=== PATIENT | male | born 1985 | race Two or more races ===

== ENCOUNTER 2023-12-08 19:31 | Emergency (ER) | payer OTHER ==
[~2023-12-08] VITALS: Ht 165.1 cm; Wt 84.0 kg
[2023-12-08 20:02] VITALS: BP 154/100; PULSE 79; RESP 16; TEMP 98.3; O2SAT 98
[2023-12-08] MEDS: DexAMETHasone SOD PHOS 10MG/1ML VIAL INJ IV ONE (21:04)
[2023-12-08] MEDS: KETOROLAC TROMETH 60MG/2ML VIAL IM ONE (21:05)
[2023-12-08] MEDS ORDERED: COLC1CAP PO (21:14)
[2023-12-08] MEDS ORDERED: ALLO100T PO (21:14)
== END 2023-12-08 21:54 | disposition home or self-care (01) ==
LOC: ER 19:31
DX: M10.9 Gout, unspecified (principal)
CPT/HCPCS: 73630; 96372; 96374; 99284; J1100; J1885

== ENCOUNTER 2024-10-10 07:26 | Emergency (ER) | payer OTHER ==
[~2024-10-10] VITALS: Ht 165.1 cm; Wt 88.4 kg
[~2024-10-10 07:26] MED LIST: ALLO100T PO; COLC1CAP PO
--- NOTE | 2024-10-10 07:53 | ED.PDOC ---
History of Present Illness HPI Comments 39-year-old male came to the ER stating that he has been having left foot pain for the past week. Pain is 9/10. He has been taking Motrin with mild relief. He does have a history of gout. Denies any history of hypertension diabetes. His blood pressure on arrival was 145/97. Denies any other symptoms. Chief Complaint: Lower Extremity Time Seen by MD: 07:43 Reviewed Notes: Nurses Notes, Medications, Allergies Allergies: Coded Allergies: NO KNOWN ALLERGIES (Unverified , 12/08/23) Home Meds Active Scripts Allopurinol (Allopurinol) 100 Mg Tab, 1 CAP PO DAILY for 7 Days, #7 TAB Prov:NAHUM BURCH 12/08/23 Colchicine (Colchicine) 0.6 Mg Cap, 2 CAP PO ONCE for 1 Day, #6 CAP Take 2 capsules now, then 1 capsule 1 hour later. May repeat in 3 days x1 Prov:NAHUM BURCH 12/08/23 Information Source: Patient Mode of Arrival: Ambulatory Severity: Moderate Timing: Days Duration: Since onset Past Medical History PAST MEDICAL HISTORY: Gout Surgical History: Denies all surgeries Family History Family History: Reviewed,noncontributory to illness, No family hx of Cancer, No family hx of DM, No family hx of Heart popeye, No family hx of HTN, No family hx ofKidney popeye, No family hx of Liver popeye, No family hx of Lung popeye, No family hx of Stroke Social History Smoker: Non-Smoker Alcohol: Denies ETOH Use Drugs: Denies Drug Use Constitutional: denies: chills, diaphoresis, fatigue, fever, malaise, sweats, weakness, others EENTM: denies: blurred vision, double vision, ear bleeding, ear discharge, ear drainage, ear pain, ear ringing, eye pain, eye redness, hearing loss, mouth pain, mouth swelling, nasal discharge, nose bleeding, nose congestion, nose pain, photophobia, tearing, throat pain, throat swelling, voice changes, others Respiratory: denies: cough, hemoptysis, orthopnea, SOB at rest, shortness of breath, SOB with excertion, stridor, wheezing, others Cardiovascular: denies: chest pain, dizzy spells, diaphoresis, Dyspnea on exertion, edema, irregular heart beat, left arm pain, lightheadedness, palpitations, PND, syncope, others Gastrointestinal: denies: abdomen distended, abdominal pain, blood streaked bowels, constipated, diarrhea, dysphagia, difficulty swallowing, hematemesis, melena, nausea, poor appetite, poor fluid intake, rectal bleeding, rectal pain, vomiting, others Genitourinary: denies: burning, dysuria, flank pain, frequency, hematuria, incontinence, penile discharge, penile sore, pain, testicle pain, testicle swelling, urgency, others Neurological: denies: dizziness, fainting, headache, left sided numbness, left sided weakness, numbness, paresthesia, pre-existing deficit, right sided numbness, right sided weakness, seizure, speech problems, tingling, tremors, weakness, others Musculoskeletal: reports: gout; denies: back pain, joint pain, joint swelling, muscle pain, muscle stiffness, neck pain, others Integumetry: denies: bruises, change in color, change in hair/nails, dryness, laceration, lesions, lumps, rash, wounds, others Allergic/Immunocompromised: denies: Difficulty Healing, Frequent Infections, Hives, Itching, others Hematologic/Lymphatic: denies: anemia, blood clots, easy bleeding, easy bruising, swollen glands, others Endocrine: denies: excessive hunger, excessive sweating, excessive thirst, excessive urination, flushing, intolerance to cold, intolerance to heat, unexplained weight gain, unexplained weight loss, others Psychiatric: denies: anxiety, bipolar disorder, depression, hopeless, panic disorder, schizophrenia, sleepless, suicidal, others Physical Exam General Appearance: Moderate Distress HEENT: Normal ENT Inspection, Pharynx Normal, TMs Normal Neck: Full Range of Motion, Non-Tender, Normal, Normal Inspection Respiratory: Chest Non-Tender, Lungs Clear, No Accessory Muscle Use, No Respiratory Distress, Normal Breath Sounds Cardiovascular: No Edema, No JVD, No Murmur, No Gallop, Normal Peripheral Pulses, Regular Rate/Rhythm Breast Exam: Deferred Gastrointestinal: No Organomegaly, Non Tender, No Pulsatile Mass, Normal Bowel Sounds, Soft Genitalia: Deferred Pelvic: Deferred Rectal: Deferred Extremities: No calf tenderness, Normal capillary refill, Normal inspection, Normal range of motion, Non-tender, No pedal edema Musculoskeletal : Apperance: Normal Neurologic: Alert, government affairs director II-XII nml as Tested, No Motor Deficits, Normal Affect, Normal Mood, No Sensory Deficits Cerebellar Function: Normal Reflexes: Normal Skin: Dry, Normal Color, Warm Peripheral Pulses: 3+ Radial (R), 3+ Radial (L) Lymphatic: No Adenopathy Was a procedure done? Was a procedure done?: No Differential Dx Considerations may include: Gout X-Ray, Labs, Meds, VS Vital Signs Date Time Temp Pulse Resp B/P (MAP) Pulse Ox O2 Delivery O2 Flow Rate FiO2 10/10/24 10:20 58 16 145/94 (111) 99 10/10/24 08:29 98.0 68 18 135/92 (106) 95 98.0 10/10/24 08:29 68 18 95 Room Air 10/10/24 07:49 98.0 75 18 145/97 (113) 98 98.0 Current Medications Medications (Trade) Dose Ordered Sig/Jazmin Route Start Time Stop Time Status Last Admin Ketorolac Tromethamine (Toradol Injection) 60 mg ONCE ONCE IM 10/10/24 08:00 10/10/24 08:01 DC 10/10/24 08:29 Patient alert pain Complaining of left foot pain. Vitals stable. Answering all questions. On examination there is mild swelling of the left toes. No serious gouty attack. Was given Toradol. Was given prescription of indomethacin. Counseled patient on eating habits. Explained to the patient. Was told to follow up with his primary care physician. Was told to come back if there is any problem. Time of 1ST Reevaluation: 11:06 Reevaluation 1ST: Unchanged Patient Education/Counseling: Diagnosis, Treatment, Prognosis, Need For Follow Up Family Education/Counseling: No Family Present SEPSIS Sepsis Screen Vital Signs Date Time Temp Pulse Resp B/P (MAP) Pulse Ox O2 Delivery O2 Flow Rate FiO2 10/10/24 10:20 58 16 145/94 (111) 99 10/10/24 08:29 98.0 68 18 135/92 (106) 95 98.0 10/10/24 08:29 68 18 95 Room Air 10/10/24 07:49 98.0 75 18 145/97 (113) 98 98.0 Medications Medications Dose Ordered Sig/Jazmin Route Start Time Stop Time Status Last Admin Dose Admin Ketorolac Tromethamine 60 mg ONCE ONCE IM 10/10/24 08:00 10/10/24 08:01 DC 10/10/24 08:29 Departure 1 Departure Time of Disposition: 11:07 Impression: Primary Impression: Gout attack Qualified Codes: M10.9 - Gout, unspecified Disposition: 01 HOME / SELF CARE / HOMELESS Condition: Good e-Prescriptions Indomethacin (Indomethacin) 50 Mg Cap 1 CAP PO TID for 3 Days, #9 CAP 1 Refill Prov: REJI WARNER MD 10/10/24 Discharged With: Self Critical Care Note Critical Care Time?: No Stability Stability form required: No Heart Score Heart Score: Heart Score Response (Comments) Value History N/A 0 EKG N/A 0 Age N/A 0 Risk Factors N/A 0 Troponin N/A 0 Total 0 REJI WARNER MD Oct 10, 2024 07:53
--- NOTE | 2024-10-10 07:53 | ED.PDOC ---
Musculoskeletal HPI Comments Patient came in complaining of left foot pain for the past week progressively getting worse. History of gout. States that he has been taking Motrin with some relief. Denies any other symptoms. Chief Complaint: Lower Extremity Time Seen by MD: 07:55 Reviewed Notes: Nurses Notes, Medications, Allergies Allergies: Coded Allergies: NO KNOWN ALLERGIES (Unverified , 12/08/23) Home Meds Active Scripts Indomethacin (Indomethacin) 50 Mg Cap, 1 CAP PO TID for 3 Days, #9 CAP 1 Refill Prov:REJI WARNER MD 10/10/24 Allopurinol (Allopurinol) 100 Mg Tab, 1 CAP PO DAILY for 7 Days, #7 TAB Prov:NAHUM BURCH 12/08/23 Colchicine (Colchicine) 0.6 Mg Cap, 2 CAP PO ONCE for 1 Day, #6 CAP Take 2 capsules now, then 1 capsule 1 hour later. May repeat in 3 days x1 Prov:NAHUM BURCH 12/08/23 Information Source: Patient Mode of Arrival: Ambulatory Location: Left Extremity Location: Foot Timing: Days Severity: Moderate Circumstances: Gout Onset of Symptoms: Spontaneous History of: Gout Past Medical History PAST MEDICAL HISTORY: Denies Surgical History: Denies all surgeries Family History Family History: Reviewed,noncontributory to illness, No family hx of Cancer, No family hx of DM, No family hx of Heart popeye, No family hx of HTN, No family hx ofKidney popeye, No family hx of Liver popeye, No family hx of Lung popeye, No family hx of Stroke Social History Smoker: Non-Smoker Alcohol: Denies ETOH Use Drugs: Denies Drug Use Constitutional: denies: chills, diaphoresis, fatigue, fever, malaise, sweats, weakness, others EENTM: denies: blurred vision, double vision, ear bleeding, ear discharge, ear drainage, ear pain, ear ringing, eye pain, eye redness, hearing loss, mouth larissa n, mouth swelling, nasal discharge, nose bleeding, nose congestion, nose pain, photophobia, tearing, throat pain, throat swelling, voice changes, others Respiratory: denies: cough, hemoptysis, orthopnea, SOB at rest, shortness of breath, SOB with excertion, stridor, wheezing, others Cardiovascular: denies: chest pain, dizzy spells, diaphoresis, Dyspnea on exertion, edema, irregular heart beat, left arm pain, lightheadedness, palpitations, PND, syncope, others Gastrointestinal: denies: abdomen distended, abdominal pain, blood streaked bowels, constipated, diarrhea, dysphagia, difficulty swallowing, hematemesis, melena, nausea, poor appetite, poor fluid intake, rectal bleeding, rectal pain, vomiting, others Genitourinary: denies: burning, dysuria, flank pain, frequency, hematuria, incontinence, penile discharge, penile sore, pain, testicle pain, testicle swelling, urgency, others Neurological: denies: dizziness, fainting, headache, left sided numbness, left sided weakness, numbness, paresthesia, pre-existing deficit, right sided numbness, right sided weakness, seizure, speech problems, tingling, tremors, weakness, others Musculoskeletal: reports: gout; denies: back pain, joint pain, joint swelling, muscle pain, muscle stiffness, neck pain, others Integumetry: denies: bruises, change in color, change in hair/nails, dryness, laceration, lesions, lumps, rash, wounds, others Allergic/Immunocompromised: denies: Difficulty Healing, Frequent Infections, Hives, Itching, others Hematologic/Lymphatic: denies: anemia, blood clots, easy bleeding, easy bruising, swollen glands, others Endocrine: denies: excessive hunger, excessive sweating, excessive thirst, excessive urination, flushing, intolerance to cold, intolerance to heat, unexplained weight gain, unexplained weight loss, others Psychiatric: denies: anxiety, bipolar disorder, depression, hopeless, panic disorder, schizophrenia, sleepless, suicidal, others Physical Exam General Appearance: Moderate Distress HEENT: Normal ENT Inspection, Pharynx Normal, TMs Normal Neck: Full Range of Motion, Non-Tender, Normal, Normal Inspection Respiratory: Chest Non-Tender, Lungs Clear, No Accessory Muscle Use, No Respiratory Distress, Normal Breath Sounds Cardiovascular: No Edema, No JVD, No Murmur, No Gallop, Normal Peripheral Pulses, Regular Rate/Rhythm Breast Exam: Deferred Gastrointestinal: No Organomegaly, Non Tender, No Pulsatile Mass, Normal Bowel Sounds, Soft Genitalia: Deferred Pelvic: Deferred Rectal: Deferred Extremities: No calf tenderness, Normal capillary refill, Normal inspection, Normal range of motion, Non-tender, No pedal edema, Swelling (Left foot mild) Musculoskeletal : Apperance: Normal Neurologic: Alert, airport tower controller II-XII nml as Tested, No Motor Deficits, Normal Affect, Normal Mood, No Sensory Deficits Cerebellar Function: Normal Reflexes: Normal Skin: Dry, Normal Color, Warm Peripheral Pulses: 3+ Radial (R), 3+ Radial (L) Lymphatic: No Adenopathy Was a procedure done? Was a procedure done?: No Differential Diagnosis EXT Differential Diagnosis: Sprain, Strain X-Ray, Labs, Meds, VS Vital Signs Date Time Temp Pulse Resp B/P (MAP) Pulse Ox O2 Delivery O2 Flow Rate FiO2 10/10/24 11:29 88 17 97 Room Air 10/10/24 11:29 97.8 88 18 150/98 (115) 97 97.8 10/10/24 10:20 58 16 145/94 (111) 99 10/10/24 08:29 98.0 68 18 135/92 (106) 95 98.0 10/10/24 08:29 68 18 95 Room Air 10/10/24 07:49 98.0 75 18 145/97 (113) 98 98.0 Current Medications Medications (Trade) Dose Ordered Sig/Jazmin Route Start Time Stop Time Status Last Admin Ketorolac Tromethamine (Toradol Injection) 60 mg ONCE ONCE IM 10/10/24 08:00 10/10/24 08:01 DC 10/10/24 08:29 Patient alert. History of gout. Complaining of left foot pain. Vitals stable. Answering questions. Blood pressure slightly elevated. Was given pain medication. Was given prescription of indomethacin. Explained to the patient. Was told to follow up with his primary care physician. Was told to come back if there is any problem. Time of 1ST Reevaluation: 08:25 Reevaluation 1ST: Unchanged Patient Education/Counseling: Diagnosis, Treatment, Prognosis, Need For Follow Up Family Education/Counseling: No Family Present Departure 1 Departure Time of Disposition: 17:27 Impression: Primary Impression: Gout attack Qualified Codes: M10.9 - Gout, unspecified Disposition: HOME / SELF CARE / HOMELESS Condition: Good e-Prescriptions Indomethacin (Indomethacin) 50 Mg Cap 1 CAP PO TID for 3 Days, #9 CAP 1 Refill Prov: REJI WARNER MD 6/26/25 Discharged With: Self Critical Care Note Critical Care Time?: No Stability Stability form required: No Heart Score Heart Score: Heart Score Response (Comments) Value History N/A 0 EKG N/A 0 Age N/A 0 Risk Factors N/A 0 Troponin N/A 0 Total 0 I personally scribed for REJI WARNER MD ([email or web address]) on 10/10/24 at 07:53. Electronically submitted by Lizbeth Carter ([email or web address]). REJI WARNER MD Oct 10, 2024 07:53
[2024-10-10] MEDS: KETOROLAC TROMETH 60MG/2ML VIAL IM ONE (08:29)
[2024-10-10] MEDS ORDERED: INDO50CA82 PO (11:08)
[2024-10-10 11:29] VITALS: BP 150/98; PULSE 88; RESP 17; TEMP 97.8; O2SAT 97
== END 2024-10-10 11:33 | disposition home or self-care (01) ==
LOC: ER 07:26
DX: M10.9 Gout, unspecified (principal); M79.672 Pain in left foot
CPT/HCPCS: 96372; 99283; J1885

== ENCOUNTER 2024-11-07 03:44 | Emergency (ER) | payer OTHER ==
[~2024-11-07] VITALS: Ht 165.1 cm; Wt 86.6 kg
[~2024-11-07 03:44] MED LIST changes: +INDO50CA82 PO
[2024-11-07] MEDS ORDERED: IBUP-1456 PO (04:16)
[2024-11-07] MEDS ORDERED: METH4PAK PO (04:16)
--- NOTE | 2024-11-07 04:19 | ED.PDOC ---
Musculoskeletal HPI Comments 39 year old male presents to ER with complaints of left foot pain x 1 day. Patient states he felt a cracking sensation with associated pain/swelling to left lateral foot 5 hours after he finished playing soccer yesterday evening. He rates his current pain a 9/10 to left foot without radiation. Denies use of medications for current symptoms and denies numbness/tingling, left ankle pain, falls or any further symptoms/complaints Chief Complaint: Lower Extremity Time Seen by MD: 03:47 Primary Care Provider: UNKNOWN Reviewed Notes: Nurses Notes, Medications, Allergies Allergies: Coded Allergies: NO KNOWN ALLERGIES (Unverified , 12/08/23) Home Meds Active Scripts Methylprednisolone (Medrol Dosepak) 4 Mg Jefferson, 4 MG PO UD, #21 TAB 0 Refills UAD Prov:RAMON VELEZ 11/07/24 Ibuprofen (Ibuprofen) 800 Mg Tab, 1 TAB PO TID PRN, #30 TAB 0 Refills Prov:RAMON VELEZ 11/07/24 Indomethacin (Indomethacin) 50 Mg Cap, 1 CAP PO TID for 3 Days, #9 CAP 1 Refill Prov:REJI WARNER MD 10/10/24 Allopurinol (Allopurinol) 100 Mg Tab, 1 CAP PO DAILY for 7 Days, #7 TAB Prov:NAHUM BURCH 12/08/23 Colchicine (Colchicine) 0.6 Mg Cap, 2 CAP PO ONCE for 1 Day, #6 CAP Take 2 capsules now, then 1 capsule 1 hour later. May repeat in 3 days x1 Prov:NAHUM BURCH 12/08/23 Information Source: Patient Mode of Arrival: Ambulatory Past Medical History PAST MEDICAL HISTORY: Gout Surgical History: Denies all surgeries Family History Family History: Unknown Social History Smoker: Non-Smoker Alcohol: Denies ETOH Use Drugs: Denies Drug Use Lives In: Home Constitutional: denies: chills, diaphoresis, fatigue, fever, malaise, sweats, weakness, others EENTM: denies: blurred vision, double vision, ear bleeding, ear discharge, ear drainage, ear pain, ear ringing, eye pain, eye redness, hearing loss, mouth pain, mouth swelling, nasal discharge, nose bleeding, nose congestion, nose pain, photophobia, tearing, throat pain, throat swelling, voice changes, others Respiratory: denies: cough, hemoptysis, orthopnea, SOB at rest, shortness of breath, SOB with excertion, stridor, wheezing, others Cardiovascular: denies: chest pain, dizzy spells, diaphoresis, Dyspnea on exertion, edema, irregular heart beat, left arm pain, lightheadedness, palpitations, PND, syncope, others Gastrointestinal: denies: abdomen distended, abdominal pain, blood streaked bowels, constipated, diarrhea, dysphagia, difficulty swallowing, hematemesis, melena, nausea, poor appetite, poor fluid intake, rectal bleeding, rectal pain, vomiting, others Genitourinary: denies: burning, dysuria, flank pain, frequency, hematuria, incontinence, penile discharge, penile sore, pain, testicle pain, testicle swelling, urgency, others Neurological: denies: dizziness, fainting, headache, left sided numbness, left sided weakness, numbness, paresthesia, pre-existing deficit, right sided numbness, right sided weakness, seizure, speech problems, tingling, tremors, weakness, others Musculoskeletal: reports: others (As stated in HPI) Integumetry: reports: others (As stated in HPI) Allergic/Immunocompromised: denies: Difficulty Healing, Frequent Infections, Hives, Itching, others Hematologic/Lymphatic: denies: anemia, blood clots, easy bleeding, easy bruising, swollen glands, others Endocrine: denies: excessive hunger, excessive sweating, excessive thirst, excessive urination, flushing, intolerance to cold, intolerance to heat, unexplained weight gain, unexplained weight loss, others Psychiatric: denies: anxiety, bipolar disorder, depression, hopeless, panic disorder, schizophrenia, sleepless, suicidal, others Physical Exam General Appearance: No Apparent Distress HEENT: PERRL/EOMI Neck: Full Range of Motion, Non-Tender, Normal Respiratory: Chest Non-Tender, Lungs Clear, No Accessory Muscle Use, No Respiratory Distress, Normal Breath Sounds Cardiovascular: No Murmur, No Gallop, Regular Rate/Rhythm Breast Exam: Deferred Gastrointestinal: NOT DONE Genitalia: Deferred Pelvic: Deferred Rectal: Deferred Extremities: Normal capillary refill, Normal range of motion Musculoskeletal : Extremity Location: Foot (TTP/mild swelling noted to left lateral foot. No further skin changes noted. Pulses intact. Steady gait appreciated) Neurologic: Alert, No Motor Deficits, Normal Affect, Normal Mood, No Sensory Deficits Cerebellar Function: Normal Reflexes: Normal Skin: Dry, Normal Color, Warm Lymphatic: No Adenopathy Was a procedure done? Was a procedure done?: No Sedation Sedation?: No Differential Diagnosis EXT Differential Diagnosis: Fracture, Dislocation, Neurovascular injury X-Ray, Labs, Meds, VS Vital Signs Date Time Temp Pulse Resp B/P (MAP) Pulse Ox O2 Delivery O2 Flow Rate FiO2 11/07/24 04:10 98.3 70 18 148/101 (117) 99 98.3 PATIENT: JOEY GLASER AACCT: [id number]: [id number] : 1985 LOC: ER ROOM / BED: / AGE / SEX: 39 / M ADM STATUS: REG ER SERVICE 8 ORDERING PHYSICIAN: RAMON VELEZ PROCEDURE(s): LFOOT - L FOOT 3 VIEW XRAY REASON: left foot pain ORDER NUMBER(s): [id number], ACCESSION NUMBER(s): [id number] CLINICAL INDICATION: left foot pain TECHNIQUE: XY L FOOT 3 VIEW XRAY Comparison: XY L FOOT 3 VIEW XRAY on DOS: 12/08/23 FINDINGS/IMPRESSION: : There is no evidence of acute fracture or dislocation. Soft tissues are unremarkable. ATED BY: ALFIE LEE MD DICTATED DATE/TIME: 11/07/24432 SIGNED BY: ALFIE LEE MD SIGNED DATE/TIME: 11/07/24432 CC: Toradol 60 mg IM ordered Left foot x-ray reviewed Advised on elevation and alternate ice on/off as needed for pain/swelling Advised to follow up with PCP in 1-2 days Patient verbalized understanding and agreeable with current plan of care Advised to return to ER immediately if symptoms worsen Images Reviewed?: Images reviewed and evaluated by me Time of 1ST Reevaluation: 04:12 Reevaluation 1ST: N/A Patient Education/Counseling: Diagnosis, Treatment, Prognosis, Need For Follow Up Family Education/Counseling: No Family Present Departure 1 Departure Time of Disposition: 05:22 Impression: Primary Impression: Sprain of left foot Qualified Codes: S93.602A - Unspecified sprain of left foot, initial encounter Disposition: HOME / SELF CARE / HOMELESS Condition: Stable e-Prescriptions Methylprednisolone (Medrol Dosepak) 4 Mg Jefferson 4 MG PO UD, #21 TAB 0 Refills UAD Prov: RAMON VELEZ 11/07/24 Ibuprofen (Ibuprofen) 800 Mg Tab 1 TAB PO TID PRN, #30 TAB 0 Refills Prov: RAMON VELEZ 11/07/24 Discharged With: Friend Critical Care Note Critical Care Time?: No Stability Stability form required: No Heart Score Heart Score: Heart Score Response (Comments) Value History N/A 0 EKG N/A 0 Age N/A 0 Risk Factors N/A 0 Troponin N/A 0 Total 0 RAMON VELEZ Nov 07, 2024 04:19
--- NOTE | 2024-11-07 04:35 | DVH ---
CLINICAL INDICATION: left foot pain TECHNIQUE: XY L FOOT 3 VIEW XRAY Comparison: XY L FOOT 3 VIEW XRAY on DOS: 12/08/23 FINDINGS/IMPRESSION: : There is no evidence of acute fracture or dislocation. Soft tissues are unremarkable.
[2024-11-07] MEDS: KETOROLAC TROMETH 60MG/2ML VIAL IM ONE (06:20)
[2024-11-07] MEDS ORDERED: ALL100T PO (06:40)
[2024-11-07 06:47] VITALS: BP 148/101; PULSE 70; RESP 18; TEMP 98.4; O2SAT 99
== END 2024-11-07 06:53 | disposition home or self-care (01) ==
LOC: ER 03:44
DX: S93.692A Other sprain of left foot, initial encounter (principal); M10.9 Gout, unspecified; Z79.899 Other long term (current) drug therapy; X58.XXXA Exposure to other specified factors, initial encounter; Y93.66 Activity, soccer; Y92.89 Other specified places as the place of occurrence of the external cause; Y99.8 Other external cause status
CPT/HCPCS: 73630; 96372; 99283; J1885

== ENCOUNTER 2025-03-25 17:43 | Emergency (ER) | payer OTHER ==
[~2025-03-25] VITALS: Ht 160 cm; Wt 86.5 kg
[~2025-03-25 17:43] MED LIST changes: +ALL100T PO; +IBUP-1456 PO; +METH4PAK PO
[2025-03-25 19:41] VITALS: BP 143/74; PULSE 75; RESP 20; TEMP 97.7; O2SAT 99
[2025-03-25] MEDS ORDERED: INDO50CA82 PO (19:44)
[2025-03-25] MEDS ORDERED: PRED20TA2 PO (19:44)
--- NOTE | 2025-03-25 19:44 | ED.PDOC ---
Musculoskeletal HPI Comments 39 year old male presents to ER with complaints of right great toe pain x 3 days. Patient with PMH of gout reports he's been experiencing unprovoked right great toe pain x3 days. Reports that he has had similar symptoms in the past related to a "gout attack". Notes that he did take indomethacin along with allopurinol yesterday with slight relief. He rates his current pain an 8/10 to right great toe without radiation and presents to ER ambulatory on arrival, with steady gait, in no distress. Denies fever, injury, numbness/tingling or any further symptoms/complaints Chief Complaint: Lower Extremity Time Seen by MD: 18:16 Primary Care Provider: UNKNOWN Reviewed Notes: Nurses Notes, Medications, Allergies Allergies: Coded Allergies: NO KNOWN ALLERGIES (Unverified , 12/08/23) Home Meds Active Scripts Indomethacin (Indomethacin) 50 Mg Cap, 1 CAP PO TID PRN, #30 CAP 0 Refills Prov:RAMON VELEZ 03/25/25 Prednisone (Prednisone) 20 Mg Tab, 20 MG PO BID for 5 Days, #10 TAB 0 Refills Prov:RAMON VELEZ 03/25/25 Allopurinol (ZYLOPRIM TABLET) 100 Mg Tb, 1 TAB PO DAILY for 5 Days, #5 TAB 5 Refills Prov:REJI WARNER MD 11/07/24 Methylprednisolone (Medrol Dosepak) 4 Mg [place], 4 MG PO UD, #21 TAB 0 Refills UAD Prov:RAMON VELEZ 11/07/24 Ibuprofen (Ibuprofen) 800 Mg Tab, 1 TAB PO TID PRN, #30 TAB 0 Refills Prov:RAMON VELEZ 11/07/24 Indomethacin (Indomethacin) 50 Mg Cap, 1 CAP PO TID for 3 Days, #9 CAP 1 Refill Prov:REJI WARNER MD 10/10/24 Allopurinol (Allopurinol) 100 Mg Tab, 1 CAP PO DAILY for 7 Days, #7 TAB Prov:NAHUM BURCH 12/08/23 Colchicine (Colchicine) 0.6 Mg Cap, 2 CAP PO ONCE for 1 Day, #6 CAP Take 2 capsules now, then 1 capsule 1 hour later. May repeat in 3 days x1 Prov:NAHUM BURCH 12/08/23 Information Source: Patient Mode of Arrival: Ambulatory Past Medical History PAST MEDICAL HISTORY: Gout Surgical History: Denies all surgeries Family History Family History: Unknown Social History Smoker: Non-Smoker Alcohol: Denies ETOH Use Drugs: Denies Drug Use Lives In: Home Constitutional: denies: chills, diaphoresis, fatigue, fever, malaise, sweats, weakness, others EENTM: denies: blurred vision, double vision, ear bleeding, ear discharge, ear drainage, ear pain, ear ringing, eye pain, eye redness, hearing loss, mouth pain, mouth swelling, nasal discharge, nose bleeding, nose congestion, nose pain, photophobia, tearing, throat pain, throat swelling, voice changes, others Respiratory: denies: cough, hemoptysis, orthopnea, SOB at rest, shortness of breath, SOB with excertion, stridor, wheezing, others Cardiovascular: denies: chest pain, dizzy spells, diaphoresis, Dyspnea on ex ertion, edema, irregular heart beat, left arm pain, lightheadedness, palpitations, PND, syncope, others Gastrointestinal: denies: abdomen distended, abdominal pain, blood streaked bowels, constipated, diarrhea, dysphagia, difficulty swallowing, hematemesis, melena, nausea, poor appetite, poor fluid intake, rectal bleeding, rectal pain, vomiting, others Genitourinary: denies: burning, dysuria, flank pain, frequency, hematuria, incontinence, penile discharge, penile sore, pain, testicle pain, testicle swelling, urgency, others Neurological: denies: dizziness, fainting, headache, left sided numbness, left sided weakness, numbness, paresthesia, pre-existing deficit, right sided numbness, right sided weakness, seizure, speech problems, tingling, tremors, weakness, others Musculoskeletal: reports: others (As stated in HPI) Integumetry: denies: bruises, change in color, change in hair/nails, dryness, laceration, lesions, lumps, rash, wounds, others Allergic/Immunocompromised: denies: Difficulty Healing, Frequent Infections, Hives, Itching, others Hematologic/Lymphatic: denies: anemia, blood clots, easy bleeding, easy bruising, swollen glands, others Endocrine: denies: excessive hunger, excessive sweating, excessive thirst, excessive urination, flushing, intolerance to cold, intolerance to heat, unexplained weight gain, unexplained weight loss, others Psychiatric: denies: anxiety, bipolar disorder, depression, hopeless, panic dis order, schizophrenia, sleepless, suicidal, others Physical Exam General Appearance: No Apparent Distress HEENT: PERRL/EOMI Neck: Full Range of Motion, Non-Tender, Normal Respiratory: Chest Non-Tender, Lungs Clear, No Accessory Muscle Use, No Respiratory Distress, Normal Breath Sounds Cardiovascular: No Murmur, No Gallop, Normal Peripheral Pulses, Regular Rate/Rhythm Breast Exam: Deferred Gastrointestinal: NOT DONE Genitalia: Deferred Pelvic: Deferred Rectal: Deferred Extremities: Normal capillary refill, Normal range of motion Musculoskeletal : Extremity Location: Great Toe (TTP/minimal erythema to right 1st MP joint noted. No further skin changes noted. Steady gait appreciated) Neurologic: Alert, No Motor Deficits, Normal Affect, Normal Mood, No Sensory Deficits Cerebellar Function: Normal Reflexes: Normal Skin: Dry, Warm Peripheral Pulses: 2+ dorsalis pedis (R), 2+ dorsalis pedis (L), 2+ Radial (R), 2+ Radial (L), 2+ Brachial (R), 2+ Brachial (L) Lymphatic: No Adenopathy Was a procedure done? Was a procedure done?: No Sedation Sedation?: No Differential Diagnosis EXT Differential Diagnosis: Cellulitis, Fracture, Dislocation, Septic, Neurovascular injury X-Ray, Labs, Meds, VS Vital Signs Date Time Temp Pulse Resp B/P (MAP) Pulse Ox O2 Delivery O2 Flow Rate FiO2 03/25/25 19:41 Room Air* 0 21 03/25/25 19:41 97.7 75 20 143/74 (97) 99 97.7 03/25/25 17:47 97.7 75 20 143/74 99 97.7 Solu-Medrol 125 mg IM ordered Toradol 60 mg IM ordered Diet/lifestyle education discussed Advised to follow up with PCP in 1-2 days Patient verbalized understanding and agreeable with current plan of care Advised to return to ER immediately if symptoms worsen Time of 1ST Reevaluation: 19:20 Reevaluation 1ST: N/A Patient Education/Counseling: Diagnosis, Treatment, Prognosis, Need For Follow Up Family Education/Counseling: No Family Present Departure 1 Departure Time of Disposition: 19:42 Impression: Primary Impression: Acute gout of right foot Qualified Codes: M10.9 - Gout, unspecified Disposition: HOME / SELF CARE / HOMELESS Condition: Stable e-Prescriptions Indomethacin (Indomethacin) 50 Mg Cap 1 CAP PO TID PRN, #30 CAP 0 Refills Prov: RAMON VELEZ 03/25/25 Prednisone (Prednisone) 20 Mg Tab 20 MG PO BID for 5 Days, #10 TAB 0 Refills Prov: RAMON VELEZ 03/25/25 Discharged With: Self Critical Care Note Critical Care Time?: No Stability Stability form required: No Heart Score Heart Score: Heart Score Response (Comments) Value History N/A 0 EKG N/A 0 Age N/A 0 Risk Factors N/A 0 Troponin N/A 0 Total 0 RAMON VELEZ Mar 25, 2025 19:44
[2025-03-25] MEDS: methylPREDNISolone SOD SUCC 125 MG/2 ML VL IM ONE (19:51)
[2025-03-25] MEDS: KETOROLAC TROMETH 60MG/2ML VIAL IM ONE (19:51)
== END 2025-03-25 19:57 | disposition home or self-care (01) ==
LOC: ER 17:43
DX: M10.071 Idiopathic gout, right ankle and foot (principal); Z79.899 Other long term (current) drug therapy; Z79.52 Long term (current) use of systemic steroids
CPT/HCPCS: 96372; 99284; J1885; J2919